=== PATIENT | male | born 1990 | race Caucasian/White ===

== ENCOUNTER 2021-12-11 07:50 | Emergency (ER) | payer OTHER ==
[2021-12-11] MEDS ORDERED: KETOROLAC 30 MG/ML VIAL IM STA (08:03)
[2021-12-11 08:10] VITALS: BP 170/99
--- NOTE | 2021-12-11 08:41 | XRAY Report ---
PROCEDURE: Ankle 3 View LT INDICATIONS: SWELLING/PAIN L LATERAL TECHNIQUE: 3 views of the ankle were acquired. COMPARISON: None FINDINGS: Bones: No fractures or dislocations. Ankle mortise is normally aligned. No suspicious bony lesions . Soft tissues: No tibiotalar joint effusion. Achilles tendon appears normal. IMPRESSION: No visualized acute fracture or dislocation. However, occult injury cannot be excluded. Recommend short interval imaging follow-up in 7-10 days as clinically indicated for additional evalua tion. Reviewed by: Mikayla Smalls MD on 12/11/2021 8:40 AM PDT Approved by: Mikayla Smalls MD on 12/11/2021 8:40 AM PDT Station ID: [id number]
--- NOTE | 2021-12-11 08:54 | ED Physician Documentation ---
PD HPI LOWER EXT INJURY - Stated complaint Stated Complaint: LT ANKLE INJURY - Chief complaint Chief Complaint: Ext Problem - History obtained from History obtained from: Patient - History of Present Illness PD HPI LOW EXT INJURY LOCATION: Left, Ankle - Additional information Additional information: 31-year-old male with no reported past medical history presents by private vehicle for 1 day of left ankle pain and swelling. Patient states that he noticed some pain in his ankle yesterday, but proceeded to play a game of football with his friends. He states that last night the pain kept him up. He took 3 x200mg of ibuprofen last night, but it did not really help and he is here today for evaluation. Reports throbbing pain over the outer part of his left ankle. Denies known trauma. Review of Systems Ten Systems: 10 systems reviewed and negative Constitutional: denies: Fever, Chills Musculoskeletal: reports: Joint pain, Joint swelling, Pain with weight bearing. denies: Neck pain, Back pain PD PAST MEDICAL HISTORY - Past Medical History Past Medical History: No - Present Medications Home Medications: Ambulatory Orders Medication Instructions Recorded Confirmed No Known Home Medications 12/11/21 12/11/21 - Allergies Allergies/Adverse Reactions: Allergies Allergy/AdvReac Type Severity Reaction Status Date / Time codeine Allergy Unknown Verified 12/11/21 08:05 Penicillins Allergy Unknown Verified 12/11/21 08:05 PD ED PE NORMAL - Vitals Vital signs reviewed: Yes - General General: Alert and oriented X 3, No acute distress, Well developed/nourished - HEENT HEENT: Atraumatic, PERRL, EOMI - Neck Neck: Supple, no meningeal sign, No bony TTP, C-Spine cleared by NEXUS criteria - Cardiac Cardiac: RRR, Strong equal pulses - Respiratory Respiratory: No respiratory distress, Clear bilaterally - Abdomen Abdomen: Soft, Non distended - Derm Derm: Normal color, Warm and dry - Extremities Extremities: Other (L ankle lateral malleolar tenderness to palpation. Trace swelling L ankle. 2+ DP pulses bilaterally) - Neuro Neuro: Alert and oriented X 3, machine heddle cleaner 2-12 intact, No motor deficit, No sensory deficit, Normal speech - Psych Psych: Normal mood, Normal affect Results - Vitals Vitals: Vital Signs - 24 hr 12/11/21 08:00 Temperature 36.8 C Heart Rate 80 Respiratory 18 Rate Blood Pressure 170/99 H O2 Saturation 100 Oxygen O2 Source Room air PD MEDICAL DECISION MAKING - ED course ED course: Patient presenting for ankle pain and swelling. X-rays are negative for acute findings. Patient already has a set of crutches that he is using to ambulate in the emergency department. He was placed in an Pavel wrap bandage, he was instructed on rice therapy. Instructed on gentle and gradual return to play to avoid new or worsening injury. PCP followup advised. Departure - Departure Disposition: Home, Self Care Clinical Impression: Ankle sprain Condition: Stable Instructions: ED Sprain Ankle W X Ray Comments: .You are seen today for left ankle pain. At this time your x-ray showed no fracture, no broken bones. You are being placed in an Pavel wrap for compression, use this as needed for comfort. When you are at rest elevate your left ankle to decrease swelling. Alternate Tylenol and Motrin as needed for pain and apply ice as needed for comfort. If you continue to have pain after 1 week or you do not seem to be improving you may come back for a repeat x-ray. Follow-up with your primary care physician Discharge Date/Time: 12/11/21 09:24
== END 2021-12-11 09:24 | disposition home or self-care (01) ==
LOC: ED 07:50
DX: S93.402A Sprain of unspecified ligament of left ankle, initial encounter (principal); X58.XXXA Exposure to other specified factors, initial encounter
CPT/HCPCS: 96372; 99282; 99283